=== PATIENT | male | born 1935 | race Caucasian/White ===

== ENCOUNTER 2020-09-03 13:23 | Outpatient (REF) | payer MEDICARE, OTHER, SELFPAY | END 2020-09-03 13:24 | disposition home or self-care (01) | LOC: HO.LAB 13:23 | PROVIDERS: PCP Internal Medicine Endocrinology, Diabetes & Metabolism; Visit Provider Internal Medicine | DX: Z20.822 Contact with and (suspected) exposure to COVID-19 (principal) | CPT/HCPCS: 36415; C9803; U0003 ==